=== PATIENT | male | born 1955 | race Two or more races ===

== ENCOUNTER 2018-09-08 10:56 | Emergency (ER) | payer SELFPAY ==
[~2018-09-08] VITALS: Ht 177.8 cm; Wt 79.4 kg
[~2018-09-08 10:56] MED LIST: ALPR1TAB6 PO; ASPI81TA50 PO; CLIN150C14 PO; DOCU100C28 PO; FOLI1CAP10 PO; HYDR-2761 PO; HYDR-2769 PO; LORA10TA3 PO; METO-239 PO; MIDO10TA PO; RANI150C PO; SEVE800T9 PO; WARF-31 PO; WARF-78 PO; WARF2.5T71 PO
[2018-09-08 11:49] VITALS: BP 125/56
[2018-09-08] MEDS ORDERED: methylPREDNISolone SOD SUCC PF 125 MG/2 ML VIAL. IM ONE (12:30)
[2018-09-08] MEDS ORDERED: KETOROLAC 60 MG/2 ML VIAL. IM ONE (12:30)
[2018-09-08] MEDS ORDERED: TRAM50TA PO (12:31)
--- NOTE | 2018-09-08 12:31 | PHYS DOC ---
Past Medical History Past Medical History: Anxiety, GERD, Hypertension, Renal Failure Additional Past Medical Histor: ENVIRONMENTAL ALLERGIES Additional Past Surgical Histo: AORTIC VALVE REPLACEMENT, DIALYSIS PORT L CHEST , DIALYSIS SHUNT L ARM Alcohol Use: None Drug Use: None Adult General Chief Complaint Chief Complaint: LOWER EXT PAIN HPI HPI Patient is a 62 year old male with history of hypertension, end-stage renal disease on dialysis Wednesday who presents today complaining of moderate right low back pain radiating to the right lower extremity from his sciatica that has been going on for the last 2-3 days. Patient denies any known injury. He states he typically gets an injection which relieves his pain. Patient denies any numbness or tingling to bilateral lower extremities. Denies any loss of bowel bladder function. Patient was dialyzed today. Review of Systems Review of Systems Constitutional: Denies fever or chills [] Musculoskeletal: Reports right low back pain radiating to the right lower extremity Integument: Denies rash or skin lesions [] Neurologic: Denies headache, focal weakness or sensory changes [] All other systems were reviewed and found to be within normal limits, except as documented in this note. Current Medications Current Medications Current Medications Medications (Trade) Dose Ordered Sig/Myron Start Time Stop Time Status Last Admin Dose Admin Ketorolac Tromethamine (Toradol Im) 60 mg 1X ONCE 09/08/18 12:30 09/08/18 12:31 Methylprednisolone Sodium Succinate (SOLU-Medrol 125MG VIAL) 125 mg 1X ONCE 09/08/18 12:30 09/08/18 12:31 Allergies Allergies Allergies Coded Allergies Type Severity Reaction Last Updated Verified No Known Drug Allergies 06/13/18 No Physical Exam Physical Exam Constitutional: Well developed, well nourished, no acute distress, non-toxic appearance. [] Abdomen: Bowel sounds normal, soft, no tenderness, no masses, no pulsatile masses. [] Skin: Warm, dry, no erythema, no rash. [] Back: Moderate tenderness on palpation of the right SI joint, no midline lumbar spine positive straight leg raise to the right lower extremity. Tenderness, no CVA tenderness. [] Extremities: No tenderness, no cyanosis, no clubbing, ROM intact, no edema. [] Neurologic: Alert and oriented X 3, normal motor function, normal sensory function, no focal deficits noted. [] Psychologic: Affect normal, judgement normal, mood normal. [] Current Patient Data Vital Signs Vital Signs Date Time Temp Pulse Resp B/P (MAP) Pulse Ox O2 Delivery O2 Flow Rate FiO2 09/08/18 11:49 98.0 70 16 125/56 (79) 98 Room Air 98.0 EKG EKG [] Radiology/Procedures Radiology/Procedures [] Course & Med Decision Making Course & Med Decision Making Pertinent Labs and Imaging studies reviewed. (See chart for details) This is a 62-year-old male patient presenting to the ED today with sciatica pain -chronic. Patient was given Solu-Medrol injection in the ED area discharged with instructions to follow-up with primary care doctor or the pain clinic. Vat Operator line was used for Syriac Dragon Disclaimer Dragon Disclaimer This electronic medical record was generated, in whole or in part, using a voice recognition dictation system. Departure Departure Impression: Primary Impression: Sciatica, right side Disposition: 01 HOME, SELF-CARE Condition: STABLE Referrals: NO PCP (PCP) follow up with your doctor in 1-2 weeks Patient Instructions: Sciatica with [facility] Additional Instructions: You were evaluated in the emergency room for sciatica pain. Please follow-up with your own doctor in 1-2 weeks. Scripts Tramadol Hcl (TRAMADOL HCL) 50 Mg Tablet 50 MG PO Q6HRS PRN for PAIN, #30 TAB Prov: MARCY EMMANUEL APRN 09/08/18 MARCY EMMANUEL APRN Sep 08, 2018 12:31
== END 2018-09-08 12:38 | disposition home or self-care (01) ==
LOC: ER 10:56 → MERGE 10:56 → ER 12:38
DX: M54.41 Lumbago with sciatica, right side (principal); I12.0 Hypertensive chronic kidney disease with stage 5 chronic kidney disease or end stage renal disease; N18.6 End stage renal disease; K21.9 Gastro-esophageal reflux disease without esophagitis; F41.9 Anxiety disorder, unspecified; Z95.2 Presence of prosthetic heart valve
CPT/HCPCS: 96372; 99283; J2930